=== PATIENT | male | born 1975 | race Hispanic/Latino ===

== ENCOUNTER 2022-10-29 14:59 | Emergency (ER) | payer OTHER ==
[~2022-10-29] VITALS: Ht 172.7 cm; Wt 95.3 kg
[~2022-10-29 14:59] MED LIST: AMOX1TAB16 PO; IBUP-1493 PO; SULF1TAB42 PO
[2022-10-29] MEDS ORDERED: MUPI22OI2 TP (18:58)
[2022-10-29] MEDS ORDERED: CEPH500C2 PO (18:58)
[2022-10-29] MEDS ORDERED: SULF1TAB42 PO (18:58)
[2022-10-29 19:19] VITALS: BP 127/84
== END 2022-10-29 19:22 | disposition home or self-care (01) ==
LOC: EDH 14:59
DX: L02.416 Cutaneous abscess of left lower limb (principal); I12.9 Hypertensive chronic kidney disease with stage 1 through stage 4 chronic kidney disease, or unspecified chronic kidney disease; N18.9 Chronic kidney disease, unspecified
CPT/HCPCS: 10060

== ENCOUNTER 2024-04-08 19:40 | Emergency (ER) | payer OTHER ==
[~2024-04-08] VITALS: Ht 172.7 cm; Wt 101.2 kg
[~2024-04-08 19:40] MED LIST changes: +CEPH500C2 PO; +MUPI22OI2 TP
[2024-04-08 19:42] VITALS: BP 139/103; PULSE 70; RESP 20; TEMP 98.7
[2024-04-08] MEDS: LIDOCAINE HCL 1% 20 ML VIAL INJ SCH (20:21)
--- NOTE | 2024-04-08 20:21 | NUR ---
LIDOCAINE TO BE ADMINISTERED BY DR LAWSON
[2024-04-08] MEDS ORDERED: AMOX-427 PO (20:56)
--- NOTE | 2024-04-08 20:57 | ERN ---
ED Note History of Present Illness Stated Complaint: C/O ABSCESS TO LEFT INNER THIGH Chief Complaint: Abscess Time Seen by MD: 20:01 Allergies: Coded Allergies: No Known Allergies (Unverified Allergy, Unknown, 01/06/22) Home Meds Active Scripts Mupirocin (Mupirocin Ointment) 22 Gm Oint, 1 APPLIC TP BID for 10 Days, #30 G Prov:AJ ALVAREZ 10/29/22 Cephalexin (Cephalexin) 500 Mg Capsule, 500 MG PO TID for 10 Days, #30 CAP Prov:AJ ALVAREZ 10/29/22 Sulfamethoxazole/Trimethoprim (Bactrim Ds Tablet) 1 Each Tablet, 1 TAB PO BID for 10 Days, #20 TAB Prov:AJ ALVAREZ 10/29/22 Ibuprofen (Motrin/Advil) 800 Mg Tab, 800 MG PO TIDP PRN for PAIN, #30 TAB Prov:SHEEBA GABRIEL MD 01/06/22 Amoxicillin/Potassium Clav (Amox Tr-K Clv 875-125 mg Tab) 1 Each Tablet, 1 EACH PO BID, #20 TAB Prov:SHEEBA GABRIEL MD 01/06/22 Sulfamethoxazole/Trimethoprim (Bactrim Ds Tablet) 1 Each Tablet, 1 TAB PO BID for 10 Days, #20 TAB 0 Refills Prov:SHEEBA GABRIEL MD 01/06/22 Past Medical History Dictation 48-year-old male with past medical history of prediabetes presents via private vehicle with concerns for abscess on left groin. Patient denies fevers, nausea, vomiting diaphoresis, syncope, presyncope, productive cough, focal neurological deficits Past Medical History: Hypertension Surgical History: None Review of System Dictation See HPI Initial Vital Sign VS Vital Signs Date Time Temp Pulse Resp B/P (MAP) Pulse Ox O2 Delivery O2 Flow Rate FiO2 04/08/24 19:42 98.8 70 20 139/103 97 Room Air Physical Exam Dictation Chronically ill-appearing, elevated BMI, abscess to left groin, erythema abscess, afebrile, abdomen is soft, nontender, non peritoneal lungs clear to auscultation, regular heart rate rhythm ED Course ED Course Orders Procedure Category Date Status Time Lidocaine Hcl 1% 20ml PHA 04/08/24 In Process Vial (Lidocaine Hc 20:30 I&D Set Up Bedside CPOE 04/08/24 Transmitted (Er) 20:21 Current Medications Medications (Trade) Dose Ordered Sig/Iram Route PRN Reason Start Time Stop Time Status Last Admin Dose Admin Lidocaine HCl (Lidocaine HCl 1% 20ml Vial) 20 ml ONCE INJ 04/08/24 20:30 05/08/24 20:29 Vital Signs Date Time Temp Pulse Resp B/P (MAP) Pulse Ox O2 Delivery O2 Flow Rate FiO2 04/08/24 19:42 98.8 70 20 139/103 97 Room Air Medical Decision Making MDM Ddx: Sepsis versus cellulitis versus abscess Consider CBC and chemistries assess for sepsis. Patient denies any systemic symptoms illness. Patient has recurrent abscesses. Abscess drained and dressed. We will prescribe outpatient antibiotics. Return precautions given. Invited and answered all questions prior to discharge Procedure Blade Size: 11 Progress Loculations broken. Abscess probe. Drain placed. DX & DISP Disposition: Discharge Departure Impression: Primary Impression: Abscess of left thigh Condition: Stable Scripts Amoxicillin/Potassium Clav (Augmentin Xr 1,000-62.5 Tab) 1,000 Mg-62.5 Mg Tab.er.12h 1 TAB PO BID for 10 Days, #20 TAB 0 Refills with food Prov: DAIANA LAWSON DO 04/08/24 Additional Instructions: Please follow up with Dermatology the next available appointment. Please return to the emergency department immediately if you develop fevers, spreading redness, continuous. No drainage. Please follow up with primary care physician next available appointment. Please control pain with Tylenol and ibuprofen. Referrals: CHAVO MENDIETA (PCP) JANET MOORE MD Time of Disposition: 20:57 DAIANA LAWSON DO Apr 08, 2024 20:57
== END 2024-04-08 21:09 | disposition home or self-care (01) ==
LOC: EDH 19:40
DX: L02.416 Cutaneous abscess of left lower limb (principal); I10 Essential (primary) hypertension; Z79.899 Other long term (current) drug therapy
CPT/HCPCS: 10060; 87070; 87076; 87086; 87186; 99283